=== PATIENT | male | born 1960 | race Caucasian/White ===

== ENCOUNTER → 2019-03-27 09:21 | Outpatient (CLI) | payer BC, SELFPAY ==
[2019-03-27 11:47] LABS: Alanine Aminotransferase 58 U/L (12-78); Albumin Level 3.8 gm/dL (3.4-5.0); Albumin/Globulin Ratio 1.3 (1.1-1.8); Alkaline Phosphatase 80 U/L (46-116); Anion Gap 10.4 mEq/L (5-15); Aspartate Amino Transferase 28 U/L (15-37); Bilirubin,Total 1.4 mg/dL (0.2-1.0); Blood Urea Nitrogen 27 mg/dL (7-18); Calcium 9.2 mg/dL (8.5-10.1); Carbon Dioxide 27 mmol/L (21.0-32.0); Chloride 105 mmol/L (98-107); Chol/HDL Ratio 5.6 (1-3.5); Cholesterol 168 mg/dL (140-200); Creatinine,Serum 1.31 mg/dL (0.70-1.30); Estimated Glomerular Filt Rate 56 ml/min (>60); GFR (African American) 68 ML/MIN (>60); Globulin 2.9 gm/dl (1.3-3.2); Glucose 100 mg/dL (74-106); HDL Cholesterol 30 mg/dL (27-67); LDL Cholesterol 110 mg/dL (0-130); Potassium 4.4 mmoL/L (3.5-5.1); Sodium 138 mmol/L (136-145); Total Protein,Serum 6.7 gm/dL (6.4-8.2); Triglycerides 138 mg/dL (30-200); VLDL Cholesterol 28 mg/dL (0-40)
== END ==
PROVIDERS: Visit Provider Nurse Practitioner Family
DX: Z00.00 Encounter for general adult medical examination without abnormal findings (principal)
CPT/HCPCS: 36415; 80053; 80061

== ENCOUNTER → 2019-07-03 07:50 | Outpatient (CLI) | payer BC, SELFPAY ==
--- NOTE | 2019-07-03 07:53 | CT_ITS ---
PROCEDURE: CT LUNG SCREENING CLINICAL INDICATION: H/O NICOTINE DEPENDENCE Forty pack-year smoking history, asymptomatic for lung cancer COMPARISON: No exams were available for comparison TECHNIQUE: The exam was performed on a GE Light Speed [address] scanner using 2.90 mGy CTDI. A low dose helical CT CHEST was performed on a multi-detector scanner. All CT scans at the facility use one or more dose reduction, viz: automated exposure control, ma/kV adjustment per patient size (including targeted exams where dose is matched to indication, i.e. head), or iterative reconstruction technique. The LDCT was performed in a facility that meets the criteria for the screening program. Data regarding this exam was submitted to ACR which is an approved registry. The order for this exam indicates that it came as a result of a lung cancer screening counseling shard decision-making visit that included all the elements required of such a visit including smoking cessation. The radiologist interpreting this exam meets the CMS criteria for the LDCT lung cancer screening program. The exam is reported using the Lung-RADS classification scale and reported to the ACR registry. NOTE: This study was performed for the specific purposes of lung cancer screening and is not an alternative to diagnostic chest CT. RADIATION DOSE: CTDI vol(CT dose Index-volume) = 2.90mG DLP (Dose Length Product) = 111.51 mGcm FINDINGS: Centrilobular emphysema/COPD 9 mm noncalcified nodule in the right middle lobe. The nodule is somewhat well-circumscribed. There is a 5 mm calcified nodule in the right lower lobe medially. No central obstructing lesions. There is mild bronchial thickening. Scarring is present in the lung bases. OTHER FINDINGS: Mild gynecomastia. In the upper abdomen there is a 2.6 cm hypodense lesion in the left hepatic lobe left lateral and may represent a hepatic cyst. There is an old left 7th rib fracture IMPRESSION: Lung rads category 4 A, right middle lobe nodule at 9 mm. Recommend [address] follow-up without and with contrast. Alternatively, PET-CT may be of further value. Probable left lobe hepatic cyst. Recommend confirmation with ultrasound to determine if the nodule is a cyst. Dictated by: Nacho Golden MD 07/04/2019 01:00 Electronically signed by Nacho Golden MD in [place] 07/05/2019 07:27
== END ==
PROVIDERS: PCP Internal Medicine Adolescent Medicine; Visit Provider Nurse Practitioner Family
DX: Z87.891 Personal history of nicotine dependence (principal); Z12.2 Encounter for screening for malignant neoplasm of respiratory organs

== ENCOUNTER → 2020-02-12 12:46 | Outpatient (CLI) | payer BC, SELFPAY ==
--- NOTE | 2020-02-12 12:52 | CT_ITS ---
PROCEDURE: CT CHEST W CON CLINCAL INDICATION: LUNG NODULE Follow-up lung nodule, abnormal screening CT COMPARISON: CT LUNG SCREENING from 07/03/2019 TECHNIQUE: IV Contrast: 75ml Optiray 350 Axial images obtained with sagittal and coronal reformats. All CT scans at the facility use one or more dose reduction, viz: automated exposure control, ma/kV adjustment per patient size (including targeted exams where dose is matched to indication, i.e. head), or iterative reconstruction technique. FINDINGS: HEART AND MEDIASTINAL STRUCTURES: Unremarkable. LUNGS AND PLEURAL SPACES: There is a stable 10 mm nodule in the right middle lobe. This nodule is noncalcified. Calcified granuloma is present in the right lower lobe. The mild fibrotic changes are present in the lingula and right middle lobe. No new nodules are evident. There are changes of COPD. There is increased soft tissue density within the right aspect of the distal trachea. This was not present previously and could be related to some mucous. There is a thin linear density extending from this to the left side of the trachea suggesting a mucous strand. BONY STRUCTURES: There are old left-sided rib fractures. UPPER ABDOMEN: Mild stenosis involves the ostium of the celiac artery of 30-40 percent. Hypodense lesion once again noted in the left hepatic lobe at 2.8 by 2 cm and may be due to a hepatic cyst. There is fatty infiltration of the liver ADDITIONAL FINDINGS: No other significant abnormalities. IMPRESSION: 1. Stable 10 mm nodule within the right middle lobe adjacent to the minor fissure 2. There is a new soft tissue density in the distal aspect of the trachea on the right which may be related to some adherent mucus as there is a thin linear density extending from this to the left side of the trachea suggesting a strand of mucous as well. Follow-up chest CT may confirm 3. Other nonacute findings as described above. Dictated by: Nacho Golden MD 02/13/2020 11:15 Electronically signed by Nacho Golden MD in [place] 02/13/2020 11:15
[2020-02-12 13:22] LABS: Blood Urea Nitrogen 23 mg/dl (9-20); Estimated Glomerular Filt Rate 57 ml/min (>60); GFR (African American) 68 ML/MIN (>60)
== END ==
PROVIDERS: PCP Nurse Practitioner Family; Visit Provider Thoracic Surgery (Cardiothoracic Vascular Surgery)
DX: R91.1 Solitary pulmonary nodule (principal)
CPT/HCPCS: 36415; 71260; 82565; 84520; Q9967

== ENCOUNTER → 2020-07-23 10:14 | Outpatient (CLI) | payer BC, SELFPAY ==
[2020-07-23 10:53] LABS: Basophils # 0.1 K/mm3 (0-0.2); Eosinophils # 0.1 K/mm3 (0.0-0.4); Eosinophils % 1.1 % (0.1-12.0); Hematocrit 49.7 % (42.0-52.0); Hemoglobin 16.8 g/dL (14.1-18.0); Lymphocytes # 1.7 K/mm3 (0.7-4.5); Lymphocytes % 29.5 % (10-50); Mean Corpuscular HGB Conc 33.7 g/dL (31.8-35.4); Mean Corpuscular Hemoglobin 30.8 pg (27.0-31.2); Mean Corpuscular Volume 91.5 fl (80-94); Mean Platelet Volume 7.1 fl (7.4-10.4); Monocytes # 0.4 K/mm3 (0.1-1.0); Neutrophils # 3.6 K/mm3 (1.8-7.8); Neutrophils % 61.4 % (37.0-80.0); Platelet Count 226 K/mm3 (142-424); Red Blood Count 5.44 M/mm3 (4.60-6.20); Red Cell Distribution Width 13.7 % (11.5-17.5); White Blood Count 5.9 K/mm3 (4.8-10.8)
[2020-07-23 11:23] LABS: Alanine Aminotransferase 50 U/L (12-78); Albumin Level 4.1 g/dl (3.5-5.0); Albumin/Globulin Ratio 1.5 (1.1-1.8); Alkaline Phosphatase 87 U/L (38-126); Anion Gap 9.5 mEq/L (5-15); Aspartate Amino Transferase 35 U/L (17-59); Bilirubin,Total 1.1 mg/dl (0.2-1.3); Blood Urea Nitrogen 21 mg/dl (9-20); Calcium 9.7 mg/dl (8.4-10.2); Carbon Dioxide 27 mmol/L (22.0-30.0); Chloride 103 mmol/L (98-107); Chol/HDL Ratio 5.1 (1-3.5); Cholesterol 195 mg/dl (140-200); Estimated Glomerular Filt Rate 68 ml/min (>60); GFR (African American) 83 ML/MIN (>60); Globulin 2.7 g/dL (1.3-3.2); Glucose 112 mg/dl (74-100); HDL Cholesterol 38 mg/dl (40-60); Potassium 4.5 mmoL/L (3.5-5.1); Sodium 135 mmol/L (136-145); Total Protein,Serum 6.8 g/dl (6.3-8.2); Triglycerides 166 mg/dl (30-150); VLDL Cholesterol 33 mg/dL (0-40)
[2020-07-23 11:34] LABS: Direct LDL Cholesterol 134.46 mg/dL (100-129)
[2020-07-23 11:53] LABS: Prostate Specific Ag Screen 0.4 ng/ml (0.0-4.0)
[2020-07-25 09:35] LABS: Hemoglobin A1C 5.7 % (4.0-6.0)
== END ==
PROVIDERS: Visit Provider Nurse Practitioner Family
DX: Z00.00 Encounter for general adult medical examination without abnormal findings (principal); Z12.5 Encounter for screening for malignant neoplasm of prostate; R73.9 Hyperglycemia, unspecified
CPT/HCPCS: 36415; 80053; 80061; 83036; 85025; G0103

== ENCOUNTER → 2020-11-10 09:24 | Outpatient (CLI) | payer BC, SELFPAY ==
--- NOTE | 2020-11-10 09:42 | CT_ITS ---
PROCEDURE: CT CHEST W CON CLINCAL INDICATION: LUNG NODULE Follow up COMPARISON: CT CT CHEST W CON from 02/12/2020 TECHNIQUE: IV Contrast: 75ml Isovue 370 Axial images obtained with sagittal and coronal reformats. All CT scans at the facility use one or more dose reduction, viz: automated exposure control, ma/kV adjustment per patient size (including targeted exams where dose is matched to indication, i.e. head), or iterative reconstruction technique. FINDINGS: HEART AND MEDIASTINAL STRUCTURES: Unremarkable. LUNGS AND PLEURAL SPACES: The right middle lobe nodule is stable located along the right minor fissure. No new nodule is evident. There is however patchy ground-glass attenuation with linear stranding involving the left upper lobe and to lesser degree in the right upper lobe anteriorly and left lower lobe posteriorly. These findings are consistent with bilateral pneumonia and possibly due to atypical pneumonia/viral pneumonia. No new nodules are evident. No effusions. The previously noted opacity in the right distal trachea is no longer apparent and may have been due to an area of mucous. BONY STRUCTURES: There is an old left 7th rib fracture. No acute bony findings. UPPER ABDOMEN: Hypodensity is present in the left hepatic lobe consistent with a hepatic cyst at 2.9 cm. There is fatty liver. ADDITIONAL FINDINGS: No other significant abnormalities. IMPRESSION: 1. No change in the right middle lobe nodule. 2. COPD with new patchy bilateral areas of ground-glass attenuation with some stranding and may be related to atypical pneumonia/viral/Covid19 pneumonia. Dictated by: Nacho Golden MD 11/11/2020 12:37 Nacho Golden MD in [place] 11/11/2020 12:37
[2020-11-10 09:59] LABS: Blood Urea Nitrogen 21 mg/dl (9-20); Estimated Glomerular Filt Rate 68 ml/min (>60); GFR (African American) 83 ML/MIN (>60)
== END ==
PROVIDERS: PCP Nurse Practitioner Family; Visit Provider Thoracic Surgery (Cardiothoracic Vascular Surgery)
DX: R91.1 Solitary pulmonary nodule (principal)
CPT/HCPCS: 36415; 71260; 82565; 84520; Q9967

== ENCOUNTER → 2021-03-11 09:17 | Outpatient (CLI) | payer BC, SELFPAY ==
[2021-03-11 10:16] LABS: Basophils % 0.8 % (0.1-2.0); Eosinophils # 0.1 K/mm3 (0.0-0.4); Eosinophils % 1.4 % (0.1-12.0); Hematocrit 44.4 % (42.0-52.0); Hemoglobin 15.2 g/dL (14.1-18.0); Lymphocytes # 1.8 K/mm3 (0.7-4.5); Mean Corpuscular HGB Conc 34.2 g/dL (31.8-35.4); Mean Corpuscular Hemoglobin 30.6 pg (27.0-31.2); Mean Corpuscular Volume 89.3 fl (80-94); Mean Platelet Volume 7.2 fl (7.4-10.4); Monocytes # 0.4 K/mm3 (0.1-1.0); Monocytes % 7.3 % (1.7-9.3); Neutrophils # 3.2 K/mm3 (1.8-7.8); Neutrophils % 57.6 % (37.0-80.0); Platelet Count 192 K/mm3 (142-424); Red Blood Count 4.97 M/mm3 (4.60-6.20); Red Cell Distribution Width 14.2 % (11.5-17.5); White Blood Count 5.5 K/mm3 (4.8-10.8)
[2021-03-11 10:49] LABS: Hemoglobin A1C 5.9 % (4.0-6.0)
[2021-03-11 11:24] LABS: Chloride 106 mmol/L (98-107); Potassium 4.6 mmoL/L (3.5-5.1); Sodium 137 mmol/L (136-145)
[2021-03-11 11:27] LABS: Alanine Aminotransferase 49 U/L (12-78); Albumin/Globulin Ratio 1.7 (1.1-1.8); Alkaline Phosphatase 70 U/L (38-126); Anion Gap 9.6 mEq/L (5-15); Aspartate Amino Transferase 37 U/L (17-59); Bilirubin,Total 1.2 mg/dl (0.2-1.3); Blood Urea Nitrogen 26 mg/dl (9-20); Carbon Dioxide 26 mmol/L (22.0-30.0); Chol/HDL Ratio 5.8 (1-3.5); Cholesterol 181 mg/dl (140-200); Estimated Glomerular Filt Rate 62 ml/min (>60); GFR (African American) 75 ML/MIN (>60); Globulin 2.4 g/dL (1.3-3.2); Glucose 113 mg/dl (74-100); HDL Cholesterol 31 mg/dl (40-60); Total Protein,Serum 6.4 g/dl (6.3-8.2); Triglycerides 151 mg/dl (30-150); VLDL Cholesterol 30 mg/dL (0-40)
[2021-03-11 11:39] LABS: Direct LDL Cholesterol 112.51 mg/dL (100-129)
[2021-03-11 11:57] LABS: Thyroid Stimulating Hormone 3.34 uIU/mL (0.465-4.68)
== END ==
PROVIDERS: Visit Provider Nurse Practitioner Family
DX: Z00.00 Encounter for general adult medical examination without abnormal findings (principal); R73.9 Hyperglycemia, unspecified; E66.9 Obesity, unspecified
CPT/HCPCS: 36415; 80053; 80061; 83036; 84443; 85025

== ENCOUNTER → 2021-08-23 20:22 | Outpatient (CLI) | payer BC, SELFPAY | PROVIDERS: Visit Provider Nurse Practitioner Family | DX: Z20.822 Contact with and (suspected) exposure to COVID-19 (principal); J02.9 Acute pharyngitis, unspecified | CPT/HCPCS: C9803; U0003; U0005 ==

== ENCOUNTER → 2022-03-31 08:56 | Outpatient (CLI) | payer BC, SELFPAY ==
[2022-03-31 09:20] LABS: Basophils # 0.1 K/mm3 (0-0.2); Basophils % 1.1 % (0.1-2.0); Eosinophils # 0.1 K/mm3 (0.0-0.4); Eosinophils % 1.7 % (0.1-12.0); Hematocrit 46.2 % (42.0-52.0); Hemoglobin 14.9 g/dL (14.1-18.0); Lymphocytes # 1.6 K/mm3 (0.7-4.5); Lymphocytes % 36.4 % (10-50); Mean Corpuscular HGB Conc 32.3 g/dL (31.8-35.4); Mean Corpuscular Volume 95.9 fl (80-94); Mean Platelet Volume 7.1 fl (7.4-10.4); Monocytes # 0.4 K/mm3 (0.1-1.0); Monocytes % 9.8 % (1.7-9.3); Neutrophils # 2.3 K/mm3 (1.8-7.8); Platelet Count 222 K/mm3 (142-424); Red Blood Count 4.82 M/mm3 (4.60-6.20); Red Cell Distribution Width 13.9 % (11.5-17.5); White Blood Count 4.5 K/mm3 (4.8-10.8)
[2022-03-31 09:42] LABS: Alanine Aminotransferase 55 U/L (12-78); Albumin Level 3.8 g/dl (3.5-5.0); Albumin/Globulin Ratio 1.5 (1.1-1.8); Alkaline Phosphatase 85 U/L (38-126); Anion Gap 9.5 mEq/L (5-15); Aspartate Amino Transferase 38 U/L (17-59); Bilirubin,Total 1.3 mg/dl (0.2-1.3); Blood Urea Nitrogen 22 mg/dl (9-20); Carbon Dioxide 25 mmol/L (22.0-30.0); Chloride 106 mmol/L (98-107); Chol/HDL Ratio 7.1 (1-3.5); Cholesterol 200 mg/dl (140-200); Estimated Glomerular Filt Rate 68 ml/min (>60); GFR (African American) 82 ML/MIN (>60); Globulin 2.5 g/dL (1.3-3.2); Glucose 117 mg/dl (74-100); HDL Cholesterol 28 mg/dl (40-60); Potassium 4.5 mmoL/L (3.5-5.1); Sodium 136 mmol/L (136-145); Total Protein,Serum 6.3 g/dl (6.3-8.2); Triglycerides 189 mg/dl (30-150); VLDL Cholesterol 38 mg/dL (0-40)
[2022-03-31 11:54] LABS: Hemoglobin A1C 5.6 % (4.0-6.0)
[2022-03-31 17:05] LABS: Vitamin B12 465 pg/mL (239-931)
[2022-04-04 01:56] LABS: Direct LDL Cholesterol 140 mg/dL (100-129)
== END ==
PROVIDERS: PCP Nurse Practitioner Family; Visit Provider Nurse Practitioner Family
DX: Z00.00 Encounter for general adult medical examination without abnormal findings (principal); R73.9 Hyperglycemia, unspecified; R20.2 Paresthesia of skin
CPT/HCPCS: 36415; 80053; 80061; 82607; 83036; 85025

== ENCOUNTER → 2022-11-28 12:24 | Outpatient (CLI) | payer BC, SELFPAY ==
--- NOTE | 2022-11-28 12:32 | CA_ITS ---
FINAL REPORT TECHNIQUE: Color Doppler, duplex Doppler and paredes scale sonography of the bilateral neck arterial vasculature was performed. Velocities were measured in the carotid arteries. Stenosis evaluation based on the validated velocity criteria. CLINICAL HISTORY: HTN, dizziness/vertigo, hx of smoking quit 5 years ago. FINDINGS: The peak systolic velocity of the right common carotid artery is 99 cm/s. The peak systolic velocity of the right internal carotid artery is 61 cm/s and end diastolic velocity 20 cm/s. A small amount of plaque is present. The right external carotid artery is patent. The right vertebral artery is patent with antegrade flow. The peak systolic velocity of the left common carotid artery is 108 cm/s. The peak systolic velocity of the left internal carotid artery is 66 cm/s and end diastolic velocity 25 cm/s. A small amount of plaque is present. The left external carotid artery is patent.The left vertebral artery is patent with antegrade flow. IMPRESSION: Less than 50% bilateral carotid stenoses. Bilateral patent vertebral arteries with antegrade flow. If indicated, CTA or MRA could further evaluate. Reviewed, Interpreted and Dictated by Kj Park III, MD Transcribed by Lola Christianson Authenticated and [facility]
== END ==
PROVIDERS: PCP Nurse Practitioner Family; Visit Provider Nurse Practitioner Family
DX: R42 Dizziness and giddiness (principal); R09.89 Other specified symptoms and signs involving the circulatory and respiratory systems
CPT/HCPCS: 93880

== ENCOUNTER → 2023-04-19 14:13 | Outpatient (CLI) | payer BC, SELFPAY ==
--- NOTE | 2023-04-19 14:21 | US_ITS ---
FINAL REPORT TECHNIQUE: Ultrasound images of the kidneys and bladder were obtained. CLINICAL HISTORY: .elevated kidney function FINDINGS: The right kidney measures 9.8 cm in length. It is normal in echogenicity. There is no hydronephrosis. There is a left renal cyst measuring 2 cm. The left kidney measures 10.6 cm in length. It is normal in echogenicity. There is no hydronephrosis. There is fatty infiltration of the liver. The spleen is normal. IMPRESSION: Left renal cyst. Fatty liver. Reviewed, Interpreted and Dictated by Kj Park III, MD Transcribed by Grecia Marcus Authenticated and [facility]
[2023-04-19 15:02] LABS: Microscopic, Urine URINE MICROSCOPIC (MICROSCOPIC)
[2023-04-19 16:12] LABS: Appearance,Urine CLEAR (Clear); Bilirubin,Urine Negative (Negative); Blood, Urine Negative (Negative); Color,Urine YELLOW (Yellow); Glucose,Urine (UA) Negative (Negative); Ketones,Urine Negative (Negative); Leukocyte Esterase,Urine Negative (Negative); Nitrate,Urine Negative (Negative); Protein,Urine Negative (Negative); Specific Gravity, Urine 1.025 (1.005-1.030); Urobilinogen,Urine 0.2 EU/dl (0.2)
== END ==
PROVIDERS: PCP Nurse Practitioner Family; Visit Provider Nurse Practitioner Family
DX: R79.89 Other specified abnormal findings of blood chemistry (principal)
CPT/HCPCS: 36415; 76770; 81001

== ENCOUNTER 2024-04-22 06:10 | Outpatient (CLI) | payer BC, SELFPAY ==
--- NOTE | 2024-04-22 | CT_ITS ---
FINAL REPORT TECHNIQUE: Thin section axial images were obtained from the lung apices to the upper abdomen by computed tomography. Reformatted images were obtained and reviewed. This study was performed with techniques to keep radiation doses al low as reasonably achievable (ALARA). Individualized dose reduction techniques using automated exposure control or adjustment of mA and/or kV according to the patient's size were employed. CLINICAL HISTORY: lung screening former smoker x 9 years 2ppd x 40 years COMPARISON: 11/10/2020 FINDINGS: CHEST CT LOW DOSE 64-year-old male, former smoker who quit 9 years ago, 90-mmal-vjmb history. CTDI vol (mGy): 2.9 DLP (mGy-cm): 104.46 There is no axillary adenopathy. There is no mediastinal or hilar mass or adenopathy. The heart is normal in size. There is no pericardial or pleural effusion. There is mild linear scar in the anterior left upper lobe. Lung window images demonstrate that the previously noted ground glass opacities on the prior LDCT of 2020 have resolved. The nodule in the right middle lobe noted on the prior exam measures 8 mm, and is stable, best seen on image #56 of series 4. No new pulmonary nodules or infiltrates are identified. Limited images of the upper abdomen reveal a 4.6 cm benign-appearing cyst in the lateral segment of the left lobe. IMPRESSION: Lung-RADS category 2S, the S designation for the benign-appearing cyst in the left lobe of the liver. Recommend 12 month follow up low dose chest CT. Reviewed, Interpreted and Dictated by Jt Erazo MD Transcribed by Linda Asencio Authenticated and [facility]
== END 2024-04-22 23:59 | disposition home or self-care (01) ==
LOC: RAD 06:11
PROVIDERS: PCP Nurse Practitioner Family; Visit Provider Nurse Practitioner Family
DX: Z87.891 Personal history of nicotine dependence (principal)
CPT/HCPCS: 71271

== ENCOUNTER 2024-05-28 13:59 | Outpatient (CLI) | payer BC, SELFPAY ==
--- NOTE | 2024-05-28 | CA_ITS ---
APPROVED REPORT Exam: Exercise Treadmill Technologist: Pau Norton, Ht: 5 ft 10 in Wt: 240 lbs BSA: 2.26 m2 HR: 82 bpm BP: 157/94 mmHg Rhythm: Nsr, ST-T abns inferiorly, NS ST abn laterally, PVC Medical History Medical History: HTN Medications: Losartan,,,,, HCTZ,,,,, Amldopine,,,,, Allergies: No known drug allergies Cardiac Risk Factors: HTN Stress Test Details Test: Harish, Exercise stress testing was performed using a modified Harish protocol. HR Resting HR: 89 bpm Max Heart Rate (APMHR): 157.691514 bpm Max HR Achieved: 168 bpm Target HR (85% APMHR): 133.430796 bpm % of APMHR: 107.01 Recovery HR: 103 bpm BP Resting BP: 145/90 mmHg Max BP: 225/90 mmHg Recovery BP: 162.0/86.0 mmHg ECG Resting ECG: Nsr, ST-T abns inferiorly, NS ST abn laterally, PVC Clinical Exercise duration: 06:41 min Highest Stage Achieved: Exercise capacity: 7.0 METs Stress ECG Conclusion Pt exercised 6:41 on Harish protocol Max HR: 146 % of PM: 93% Max BP: 225/90 Mets: 7.0 Test stopped due to: soa, leg fatigue No cp Occ PVC Rare atrial ectopic Apprx 1.5mm upsloping ST depression laterally Exaggeration of baseline ST-T abns inferiorly EKG changes for ischemia but with decreased specificity due to baseline abns GXT only (no images) Test Summary REST . . . . . . . Sitting REST . . . . . . . Standing REST 03:20 0.0 0.0 89 . 145/ 90 . . Stage 1 01:00 10.0 1.7 107 . . . . Stage 1 02:00 10.0 1.7 121 . . . . Stage 1 03:00 10.0 1.7 123 . 196/ 90 . . Stage 2 01:00 12.0 2.5 130 . . . . Stage 2 02:00 12.0 2.5 139 . . . . Stage 2 03:00 12.0 2.5 140 . 225/ 90 . . Stage 3 00:41 14.0 3.4 146 . . . Stop exercise at 06:41 RECOVERY 01:00 0.0 0.0 133 . . . . RECOVERY 02:00 0.0 0.0 119 . . . . RECOVERY 03:00 0.0 0.0 106 . 186/ 93 . . RECOVERY 04:00 0.0 0.0 104 . 154/ 90 . . RECOVERY 05:00 0.0 0.0 102 . 154/ 90 . . RECOVERY 06:00 0.0 0.0 96 . 162/ 86 . . RECOVERY 07:00 0.0 0.0 98 . 162/ 86 . . RECOVERY 07:31 0.0 0.0 99 . 162/ 86 . . Electronically signed by : Nicho Dey MD 05/29/2024 09:34:09
== END 2024-05-28 23:59 | disposition home or self-care (01) ==
PROVIDERS: PCP Nurse Practitioner Family; Visit Provider Nurse Practitioner Family
DX: I10 Essential (primary) hypertension (principal); R06.09 Other forms of dyspnea; E78.5 Hyperlipidemia, unspecified; Z87.891 Personal history of nicotine dependence
CPT/HCPCS: 93017

== ENCOUNTER 2024-06-08 07:24 | Outpatient (CLI) | payer BC, SELFPAY ==
[2024-06-08] VITALS (9 sets, daily range): BP systolic 94–146; BP diastolic 62–94; PULSE 54–78; RESP 18; TEMP 36.5; O2SAT 93–96; BMI 35.4
--- NOTE | 2024-06-08 07:31 | CT_ITS ---
APPROVED REPORT Product Expert: CLINICAL INDICATION Chest Pain TECHNIQUE Image Acquisition: A 128 slice MDCT scanner (Return Patha View) was used for data acquisition. A noncontrast coronary calcium scan was performed. A CT attenuation threshold of 130 Hounsfield units (HU) was used for the detection of calcium in contiguous voxels of 1 sq mm in area to be counted as individual lesions. Bolus tracking in the ascending aorta with a threshold of 180 HU was performed. Immediately afterwards, ECG synchronized cardiac CT was then performed from the cardiac base to apex using retrospective gating with ECG tube current modulation. A total of 85 mL of Isovue 370 mg/mL contrast medium was administered at 5 mL/sec followed by a saline flush using a biphasic injection protocol. A tube voltage of 120 KVp was used. The patient received the following medications prior to the cardiac CT. 75 mg of oral metoprolol 15 mg of oral ivabradine 0.8 mg of sublingual nitroglycerin The average heart rate at the time of acquisition was 53 bpm and regular. Image Reconstruction Transaxial images were reconstructed at 0.67 mm slide thickness. Data was reviewed interactively on an advanced workstation capable of 2 and 3-dimensional displays in all conventional reconstruction formats, including multiplanar reformations, maximum intensity projections, curved multiplanar reformations, and volume rendered reconstructions. When applicable, selected routine images describing the relevant coronary anatomy and pathology were saved and sent to PACS. Complications None Technical Quality Overall image quality was good. Coronary artery opacification was adequate. Total DLP (Dose-Length Product) is 1948.7 mGy-cm. The reported value represents the total of one or more individual components during the CT acquisition of this date and at this time, and as such, the same value may appear in more than one CT report depending on the interpreting/reporting physicians. COMPARISON None FINDINGS CT Coronary Calcium Scoring LMA (Left Main Artery) = 0 LAD (Left Anterior Descending) = 110 LCX (Left Coronary Circumflex) = 84 RCA (Right Coronary Artery) = 88 Total Calcium Score = 282 using the AJ-130 method. The observed calcium score of 282 is at 76th percentile for subjects of the same age, sex, and race/ethnicity. The interpretation of the calcium heart score is based on the following continuum*: 0 = no calcified plaque detected (risk of coronary artery disease is very low ??? less than 5%) 1-10 = calcium detected in extremely minimal levels (risk of coronary diseases is still low ??? less than 10%) 11-100 = mild levels of plaque detected with certainty (mild or minimal narrowing of heart arteries is likely) 101-400 = definite,at least moderate levels of plaque detected (relatively high risk of a heart attack within 3-5 years) >401-999 = extensive levels of plaque detected (high risk of heart attack, high levels of vascular disease are present, high likelihood of at least one significant coronary narrowing) *The calcium heart score quantifies the burden of coronary calcification/plaque in the coronary arteries. The calcium heart score is not able to evaluate the presence or burden of non-calcified (i.e. soft) plaque. There is no identifiable calcification in the aortic valve, mitral annulus or mitral valve, pericardium, or myocardium. Coronary CT Angiography The coronary arterial system is right dominant. Quantitative Stenosis Grading: Left Main (LM): The left main originates normally from the left sinus of Valsalva. The LM bifurcates into the left anterior descending artery and left circumflex artery. The LM is patent with no evidence of atherosclerosis. Left Anterior Descending (LAD) and Diagonal Branches: The LAD gives off 3 diagonal branch(es). There is mixed calcified/noncalcified plaque in the proximal and mid LAD segments, with up to 25-49% luminal stenosis. There is no evidence of LAD-myocardial bridge. Left Circumflex (LCX) and Obtuse Marginals (OM): The LCX gives off 1 Obtuse Marginal (OM) branch(es). There is mixed calcified/noncalcified plaque in the proximal LCx segment with up to 25-49% luminal stenosis. Right Coronary Artery (RCA): The RCA originates normally from the right sinus of Valsalva. The RCA gives off a posterior descending artery (PDA) and posterolateral (PL) branches. There is mixed calcified/noncalcified plaque in the proximal and mid RCA segments with up to 25-49% luminal stenosis. Non-Coronary Cardiac Findings: Analysis of the left ventricular (LV) structure and function was performed after 3-D reconstruction of the LV from axial images, with user-corrected automatic contouring for assessment of LV volumes and user-defined reconstruction from oblique planes for measurement of 3-D cardiac structure and function. -The left ventricle systolic function is normal. -There is no left atrial appendage filling defect. Two right pulmonary veins and two left pulmonary veins drain normally into the left atrium. -No pericardial thickening or calcification. -Central and branch pulmonary arteries in the [id number] are unremarkable. -Thoracic aorta within the visualized thoracic aortic-branches in the [id number] is unremarkable. Extracardiac Structures No significant extra-cardiac findings. Note, however, that this study is focused on the cardiac findings. IMPRESSION -Presence of coronary calcification with an Agatston score = 282 using the AJ-130 method. -The observed calcium score of 282 is at 76th percentile for subjects of the same age, sex, and race/ethnicity. -Mild, nonobstructive atherosclerotic coronary disease with no evidence of significant flow-limiting atherosclerosis of the coronary arteries. -CAD-RADS 2. Management recommendations per ACC/AHA guidelines*, as clinically appropriate. *Recommendations: CAD RADS 0: Reassurance. Consider non-atherosclerotic causes of chest pain. CAD RADS 1: Consider non-atherosclerotic causes of chest pain. Consider preventive therapy and risk factor modification. CAD RADS 2: Consider non-atherosclerotic causes of chest pain. Consider preventive therapy and risk factor modification, particularly for patients with nonobstructive plaque in multiple segments. CAD RADS 3: Consider further functional testing. Consider symptom-guided anti-ischemic and preventive pharmacotherapy as well as risk factor modification per published guideline statements. CAD RADS 4A: Consider further functional testing or invasive coronary angiography with revascularization per published guideline statements. Consider symptom-guided anti-ischemic and preventive pharmacotherapy as well as risk factor modification per published guideline statements. CAD RADS 4B: Invasive coronary angiography recommended with revascularization per published guideline statements. Consider symptom-guided anti-ischemic and preventive pharmacotherapy as well as risk factor modification per published guideline statements. CAD RADS 5: Consider invasive angiography and/or viability assessment with revascularization per published guideline statements. Consider symptom-guided anti-ischemic and preventive pharmacotherapy as well as risk factor modification per published guideline statements. CRITICAL RESULT None COMMUNICATION Per this written report The coronary and cardiac findings of this CCTA were reviewed, reported, and signed by Irineo Lemons MD ([employer] Machine Operator) Conclusion Electronically signed by : Anna Lemons MD 06/10/2024 13:51:23
[2024-06-08] MEDS: IVABRADINE HCL 7.5MG TABLET *IVABRADINE+METOPROLOL REGIMINE 15 MG PO (07:58)
[2024-06-08] MEDS: METOPROLOL TARTRATE 50MG TABLET *IVABRADINE+METOPROLOL REGIMINE 75 MG PO (07:58)
[2024-06-08 08:07] LABS: Blood Urea Nitrogen 22 mg/dl (9-20); Calcium 9.2 mg/dl (8.4-10.2); Creatinine Clearance Estimated 96 mL/min (50-200); Estimated Glomerular Filt Rate 61 ml/min (>60); GFR (African American) 74 ML/MIN (>60); Glucose 120 mg/dl (74-100); Potassium 3.7 mmoL/L (3.5-5.1)
[2024-06-08 08:08] LABS: Carbon Dioxide 28 mmol/L (22.0-30.0)
[2024-06-08 08:17] LABS: Anion Gap 9.7 mEq/L (5-15); Chloride 103 mmol/L (98-107); Sodium 137 mmol/L (136-145)
[2024-06-08] MEDS: IOPAMIDOL-370 (76%);100ML BOTTLE 85 ML IV (09:27)
[2024-06-08] MEDS: SODIUM CHLORIDE 0.9% 10ML SYR (RAD ONLY) 10 ML IV (09:27)
[2024-06-08] MEDS: 0.9 % SODIUM CHLORIDE 50 ML VIAL IV (09:27)
[2024-06-08] MEDS: NITROGLYCERIN 0.4MG SL TABLET 0.8 MG SL (10:07)
== END 2024-06-08 09:32 | disposition home or self-care (01) ==
PROVIDERS: PCP Nurse Practitioner Family; Visit Provider Nurse Practitioner Family
DX: R94.39 Abnormal result of other cardiovascular function study (principal)
CPT/HCPCS: 75574; 80048; Q9967

== ENCOUNTER 2025-05-04 13:35 | Outpatient (CLI) | payer BC, SELFPAY ==
--- NOTE | 2025-05-04 13:37 | CT_ITS ---
FINAL REPORT TECHNIQUE: Axial CT images of the chest were obtained without contrast. Coronal and sagittal reformatted images were obtained and reviewed. This study was performed with techniques to keep radiation doses as low as reasonably achievable (ALARA). Individualized dose reduction techniques using automated exposure control or adjustment of mA and/or kV according to the patient's size were employed. CLINICAL HISTORY: HX OF TOBACCO former smoker, quit 7 years ago 2 x 45 COMPARISON: 04/22/2024 FINDINGS: CT CHEST WITHOUT, LOW DOSE SCREENING CTDl vol(mGy): 2.90 DLP (mGy-cm): 114.64 Former smoker 90 pack year history There is no axillary adenopathy. There is no hilar or mediastinal adenopathy. The heart size is normal. There is no pericardial or pleural effusion. Lung window images demonstrate stable ovoid nodule in the anterior right middle lobe on image 55 of series 3. No new nodules are identified. Limited images of the upper abdomen demonstrate a well-circumscribed low-attenuation focus in the lateral segment of the left lobe of the liver measuring 5.1 cm. This is larger than on previous exam and demonstrates a mean attenuation value of 7 Hounsfield units likely related to a benign cyst. IMPRESSION: Lung RADS category 2S. Recommend 12 month follow-up low-dose chest CT per Fleischner criteria. Modifier S: Benign cyst left lobe of the liver. Reviewed, Interpreted and Dictated by Jt Erazo MD Transcribed by Cindy Rees Authenticated and [facility]
--- OUTSIDE RECORDS SUMMARY | 2025-05-04 13:41 | XMS_ITS | Clinical Summary ---
[facility] Address [address] [place] [address] Care Team Providers Care Electrical Accessories Ii Assembler Name Role Phone Fely Knowles ROSA Primary Care Provid er Allergies No known active allergies Medications lisinopril-hydr ochlorothiazide (PRINZIDE,ZESTO RETIC) 20-12.5 MG per tablet Take 0.5 tablets by mouth Daily. 1/2 tablet a day 06/26/2019 Active aspirin 81 MG tablet Take 81 mg by mouth Daily. Active Active Problems Problem Noted Date Diagnosed Date Lung nodule 08/17/2019 Family History Medical History Relation Name Comments COPD Father Relation Name Status Comments Father Mother Alive Social History Tobacco Use Types Packs/Day Years Used Date Smoking Tobacco: Former Cigarettes 2 40 1 978 - 2017 Smokeless Tobacco: Never Alcohol Use Standard Drinks/Week Comments Yes 0 (1 standard drink = 0.6 oz pur e alcohol) every 6 months Abuse Screen Answer Date Recorded Unsafe at Home or Work/School Not on file Feels Threatened by Someone? Not on file 07/2023 Does Anyone Keep You from Co ntacting Others or Doint Things Outside the Home? Not on file 05/16/2023 Physical Sign of Abuse Present Not on file 1 Housing Stability Answer Date Recorded Current Living Arrangements Not on file 05/05 Potentially Unsafe Housing Conditions Not on jeanie e 05/16/2023 Family and Community Support Answer Roberto e Recorded Help with Day-to-Day Activities Not on file 05/16/2023 Lonely or Isolated Not on file 05/16/2023 Employment Answer Date Recorded Do you want help finding or keeping work or a bang b? Not on file 05/16/2023 Disabilities Answer Date Recorded Concentrating, Remembering, or Making Decisions Difficulty Not on file 05/16/2023 Doing Errands Independently Difficulty Not on fi le 05/16/2023 Education Answer Date Recorded Help with school or training? 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 on file Not on file Not on jeanie e Last Filed Vital Signs Vital Sign Reading Time Taken Comments Blood Pressure 140/100 11/24/2020 9:49 AM EDT Pulse 83 11/24/2020 9:49 AM EDT Temperature 36.3 C (97.4 F) 11/24/2020 9:49 AM EDT Respiratory Rate - - Oxygen Saturation 99% 11/24/2020 9:49 AM EDT Inhaled Oxygen Concentration - - Weight 110 kg (243 lb) 11/24/2020 9:49 AM EDT Height 177.8 cm (5' 10 ) 11/24/2020 9:49 AM EDT Body Mass Index 34.87 11/24/2020 9:49 AM EDT Plan of Treatment Health Maintenance Due Date Last Done Comments TDAP/TD VACCINES (1 - Tdap) 1979 COLOGUARD 2005 COLON CANCER SCREENING 5 YEA R SIGMOIDOSCOPY 2005 COLONOSCOPY [address] SCREENING [address] CT COLONOGRAPHY 2005 FECAL OCCULT BLOOD TEST 2005 FIT Testing (1 year) 2005 Pneumococcal Vaccine 50+ (1 of 1 - PCV) 2010 ANNUAL PHYSICAL 07/31/2019 HEPATITIS C SCREENING 07/31/2019 INFLUENZA VACCINE 03/05/2025 07/31/2016 ZOSTER VACCINE Completed 09/21/2019, 03/27/2019 LUNG CANCER SCREENING Discontinued 11/08/2020, 020 Procedures Procedure Name Priority Date/Time Associated Diagnosis Comments CT CHEST W CONTRAST Routine 11/08/2020 Lung nodule from Last 3 Months or Most Recently Relevant to Health Maintenance Results * CT Chest With Contrast (11/08/2020) Anatomical Region Laterality Modality Chest N/A Computed Tomogra phy Dom HA IMG CT ORDERABLES Final Result from Last 3 Months or Most Recently Relevant to Health Maintenance Insurance [facility] PPO Care Teams Electrical Accessories Ii Assembler Relationship Specialty Start Date End Date Fely Knowles APRN [address] [place] [id number] PCP - General Family Medicine 07/22/19
--- OUTSIDE RECORDS SUMMARY | 2025-05-04 13:41 | XMS_ITS | Clinical Summary ---
Author Organization Healthcare Address [address] [place] [address] Care Team Providers Care Automatic Pinsetter Mechanic Name Role Phone Fely Knowles APRN Primary Care Provider [phone]- [phone] Social History Tobacco Use Types Packs/Day Years Used Date Smoking Tobacco: Every Day Sex and Gender Information Value Date Recorded Sex Assigned at Not on file Legal Sex Male 6:17 PM EDT Gender Identity Not on file Sexual Orientation Not on file Last Filed Vital Signs Vital Sign Reading Time Taken Comments Blood Pressure - - Pulse - - Temperature - - Respiratory Rate - - Oxygen Saturation - - Inhaled Oxygen Concentration - - Weight 97.1 kg (214 lb) 10/04/2016 1:21 PM EST Height 177.8 cm (5' 10 ) 10/04/2016 1:21 PM EST Body Mass Index 30.71 10/04/2016 1:21 PM EST Plan of Treatment Not on file Care Teams Automatic Pinsetter Mechanic Relationship Specialty Start Date End Date Fely Knowles APRN [address] [place] [address] PCP - General 12/16/20
== END 2025-05-04 23:59 | disposition home or self-care (01) ==
LOC: RAD 13:35
PROVIDERS: PCP Nurse Practitioner Family; Visit Provider Nurse Practitioner Family
DX: Z12.2 Encounter for screening for malignant neoplasm of respiratory organs (principal); K76.89 Other specified diseases of liver; Z87.891 Personal history of nicotine dependence
CPT/HCPCS: 71271

== ENCOUNTER 2025-07-06 11:44 | Outpatient (CLI) | payer BC, SELFPAY ==
--- OUTSIDE RECORDS SUMMARY | 2025-07-06 11:47 | XMS_ITS | Clinical Summary ---
Author Organization [facility] Address [address] [place] [address] Care Team Providers Care Printing Mechanist Name Role Phone Fely Knowles APRN Primary Care Provider [phone]- [phone] Social History Tobacco Use Types Packs/Day Years [...] of Treatment Not on file Care Teams Printing Mechanist Relationship Specialty Start Date End Date Fely Knowles APRN [address] [place], [place] [id number] PCP - General 12/16/20
--- OUTSIDE RECORDS SUMMARY | 2025-07-06 11:47 | XMS_ITS | Clinical Summary ---
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 Not [...] C SCREENING 07/31/2019 INFLUENZA VACCINE 03/05/2025 07/31/2016 COVID-19 Vaccine (2 - season) 2025 AAA SCREEN ONCE 2025 ZOSTER VACCINE Completed 09/21/2019, 03/27/2019 LUNG CANCER SCREENING Discontinued 11/08/2020, 020 Procedures Procedure Name Priority Date/Time Associated Diagnosis Comments CT CHEST W CONTRAST Routine 11/08/2020 Lung nodule from Last 3 Months or Most Recently Relevant to Health Maintenance Results * CT Chest With Contrast (11/08/2020) Anatomical Region Laterality Modality Chest N/A Computed Tomogra phy oDm HA IMG CT ORDERABLES Final Result from Last 3 Months or Most Recently Relevant to Health Maintenance Insurance [facility] PPO Member Subscriber Plan / Payer (Ef fective 2016-Present) Name:Saud Salgado Relation to Subscriber:Spouse Name:MARGA SALGADO Date of :1960 Address: [address] [place] [address] Payer ID:[id number] (NAIC) Type:Not on file Address: [facility] [id number] [place] [id number] Care Teams Operations Management Trainee Relationship Specialty Start Date End Date Fely Knowles APRN [address] [place] [id number] PCP - General Family Medicine 07/22/19
--- NOTE | 2025-07-06 11:49 | XR_ITS ---
FINAL REPORT CLINICAL HISTORY: MID BACK PAIN LT SIDE COMPARISON: 2 view abdomen FINDINGS: 2 VIEW ABDOMEN: Supine and upright views of the abdomen were obtained. The bowel gas pattern reveals a nonspecific nonobstructive bowel gas pattern, with moderate stool present. There is a calcification in the right pelvis that likely is vascular. No definite renal stones are identified. IMPRESSION: Nonspecific nonobstructive bowel gas pattern with a moderate stool burden. Reviewed, Interpreted and Dictated by Linn Rivero MD Transcribed by Linda Asencio Authenticated and . [facility]
--- NOTE | 2025-07-06 11:49 | XR_ITS ---
FINAL REPORT CLINICAL HISTORY: MID BACK PAIN LT SIDE COMPARISON: None FINDINGS: AP, lateral, and swimmer's views of the thoracic spine were obtained. There is no prior exam for comparison. There is no acute fracture or malalignment. Vertebral body height is preserved. Mild multilevel degenerative disc disease is present. Paraspinal soft tissues are within normal limits. IMPRESSION: Mild multilevel degenerative disc disease, with no acute osseous abnormality of the thoracic spine. Reviewed, Interpreted and Dictated by Linn Rivero MD Transcribed by Linda Asencio Authenticated and [facility]
== END 2025-07-06 23:59 | disposition home or self-care (01) ==
LOC: RAD 11:45
PROVIDERS: PCP Nurse Practitioner Family; Visit Provider Nurse Practitioner Family
DX: M51.34 Other intervertebral disc degeneration, thoracic region (principal); R93.3 Abnormal findings on diagnostic imaging of other parts of digestive tract
CPT/HCPCS: 72072; 74019